=== PATIENT | female | born 1960 | race Two or more races ===

== ENCOUNTER 2021-07-25 07:18 | Day surgery (SDC) | payer OTHER | END 2021-07-25 10:20 | disposition home or self-care (01) | LOC: AMB-ENDOS 07:18 | PROVIDERS: ATTEND Colon & Rectal Surgery | DX: D12.0 Benign neoplasm of cecum (principal); D12.2 Benign neoplasm of ascending colon; K64.8 Other hemorrhoids; Z20.822 Contact with and (suspected) exposure to COVID-19 ==

== ENCOUNTER 2022-02-13 06:56 | Day surgery (SDC) | payer OTHER | END 2022-02-13 13:40 | disposition home or self-care (01) | LOC: AMB-ENDOS 06:56 → CIR.AMB 13:30 → AMB-ENDOS 13:40 | PROVIDERS: ATTEND Colon & Rectal Surgery | DX: D17.79 Benign lipomatous neoplasm of other sites (principal); Z20.822 Contact with and (suspected) exposure to COVID-19 ==